=== PATIENT | male | born 1950 | race Caucasian/White ===

== ENCOUNTER 2017-04-30 11:40 | Emergency (ER) | payer MEDICARE, BC ==
--- NOTE | 2017-04-30 12:38 | ERNOTE ---
Lower Extremity HPI - General Lower Extremities Pain: foot: right - pain, increasing Time Seen by Provider: 04/30/17 12:20 Source: patient, family Exam Limitations: no limitations - Immun/Allergies/Home Medications Allergies/Adverse Reactions: Allergies Allergy/AdvReac Type Severity Reaction Status Date / Time No Known Allergies Allergy Verified 04/30/17 12:08 Home Medications: HOME MEDICATIONS Aspirin 81 mg PO DAILY 04/30/17 [Last Taken Unknown] Metoprolol Tartrate [Lopressor] 25 mg PO DAILY 04/30/17 [Last Taken Unknown] - History of Present Illness Narrative: Pt began to have pain in his feet after a calf work out and bike ride to and from work last week. The left foot did not get very sore and improved quickly. The right foot pain has increased to the point that he is unable to ambulate today. Pain is on the plantar surface and medial arch. Pt states he has an extra bone in his feet and has had a fracture of the other foot in the extra bone Occurred: last week Location of Incident: home Method of Injury: Reports: unknown Modifying Factors - (Worsens): Reports: movement, other - ambulation Associated Symptoms: Reports: unable to bear weight - today Review of Systems - Review of Systems Constitutional: Present: no symptoms reported EYE: Present: no symptoms reported ENT: Present: no symptoms reported Respiratory: Present: no symptoms reported Cardiology: Present: no symptoms reported Gastrointestinal/Abdominal: Present: no symptoms reported Genitourinary: Present: no symptoms reported Musculoskeletal: Present: See HPI Skin: Present: no symptoms reported Neurological: Absent: weakness, numbness, tingling Hematologic/Lymphatic: Present: no symptoms reported Psych: Present: no symptoms reported - Patient's Past Medical History Patient History - Medical: No pertinent hx Patient History - Cardiac/Respiratory: Hypertension, Hyperlipidemia, Myocardial Infarction Patient History - Surgical Procedures: Cardiac stent, Hernia Repair - Social History Living Situations: home Psych History: No pertinent hx Smoking Status: Never smoker Have you smoked in the past 12 months: No Do you dip or chew tobacco: No Alcohol Use: occasionally Drug Use: none Physical Exam - Physical Exam General Appearance: Present: wd/wn, alert, no apparent distress Eye Exam: Normal inspection: bilateral Ears, Nose, Throat: Present: normal ENT inspection Neck: Present: normal inspection, supple Respiratory: Present: no respiratory distress, no accessory muscle use Peripheral Pulses: N=norm/S=strong/W=weak/B=bound/A=absent: Dorsalis-pedis (R): Normal Extremity Exam: Present: no edema, other - right foot mildly restriction of motion in dorsiflexion and inversion. Right hog tender along the plantar fascia and medial foot at the tarsals. . Absent: calf tenderness Neurological Exam: Present: alert, oriented, normal mood/affect Skin Exam: Present: normal color, warm/dry, other - no erythema or warmth of the effected foot ED Progress - Vital Signs Vital Signs: Vital Signs 04/30/17 12:05 Temperature 36.8 C Pulse Rate 48 L Respiratory 12 Rate Blood Pressure 141/90 O2 Sat by Pulse 98 Oximetry - Progress/Reassessment Chief Complaint: Foot Injury/Pain Departure Clinical Impression: Tendonitis of foot - Departure Disposition: Home self-care Condition: Good Instructions: Tendinitis, [id number] Additional Instructions: you may take ibuprofen 600 mg (3 tabs of 200mg) three times a day or aleve 440 mg (two 220mg tabs) twice a day for pain and inflammation. See your regular doctor if not improving.
[2017-04-30] MEDS ORDERED: IBUPROFEN 600 MG TABLET PO ONE (13:22)
[2017-04-30] MEDS ORDERED: IBUPROFEN 600 MG TABLET ONE (13:23)
[2017-04-30 14:25] VITALS: BP 134/84
== END 2017-04-30 14:20 | disposition home or self-care (01) ==
LOC: ER 11:40
DX: M77.51 Other enthesopathy of right foot and ankle (principal)